=== PATIENT | female | born 1995 | race Caucasian/White ===

== ENCOUNTER 2020-02-10 15:15 | Emergency (ER) | payer SELFPAY ==
[~2020-02-10] VITALS: Ht 172.7 cm; Wt 72.6 kg
[2020-02-10 15:21] VITALS: BP 125/78; Ht 172.7 cm; Wt 72.6 kg
== END 2020-02-10 17:19 | disposition home or self-care (01) ==
LOC: ED 15:15
DX: N76.0 Acute vaginitis (principal)
CPT/HCPCS: 87491; 87591; J0696